=== PATIENT | male | born 1945 | race Caucasian/White ===

== ENCOUNTER 2016-12-29 13:54 | Emergency (ER) | payer MEDICARE ==
[2016-12-29] MEDS ORDERED: ONDANSETRON HCL INJ/PF 4 MG/2 ML SDV IV ONE (14:29)
[2016-12-29] MEDS ORDERED: KETOROLAC TROMETHAMINE INJ/PF 30 MG/1 ML SDV IV ONE (14:29)
--- NOTE | 2016-12-29 14:30 | ER Document Report ---
ED Medical Screen (RME) - General Stated Complaint: BACK PAIN Mode of Arrival: Ambulatory Information source: Patient Notes: Patient complains of left flank pain that radiates to left side of abdomen that started around 11 AM. Patient has a history of kidney stones and suspects the same today. hx: Kidney stones, diabetes, hypertension I have greeted and performed a rapid initial assessment of this patient. A comprehensive ED assessment and evaluation of the patient, analysis of test results and completion of the medical decision making process will be conducted by additional ED providers. TRAVEL OUTSIDE OF THE [place] IN LAST 30 DAYS: No - Related Data Allergies/Adverse Reactions: Penicillins Allergy (Verified 12/29/16 14:29) Past Medical History - Past Medical History Cardiac Medical History: Reports: Hx Hypercholesterolemia, Hx Hypertension Renal/ Medical History: Reports: Hx Benign Prostatic Hyperplasia Past Surgical History: Reports: Hx Orthopedic Surgery - Immunizations Hx Diphtheria, Pertussis, Tetanus Vaccination: Yes - unknown Physical Exam - Vital signs Vitals: Temp Pulse Resp BP Pulse Ox 98.3 F 83 20 157/90 H 97 12/29/16 14:19 12/29/16 14:19 12/29/16 14:19 12/29/16 14:19 12/29/16 14:19 - Back Back: CVA tenderness - Left Course - Vital Signs Vital signs: Temp Pulse Resp BP Pulse Ox 98.3 F 83 20 157/90 H 97 12/29/16 14:19 12/29/16 14:19 12/29/16 14:19 12/29/16 14:19 12/29/16 14:19
[2016-12-29] MEDS ORDERED: HYDROMORPHONE HCL INJ/PF 2 MG/ML AMPULE IV ONE (15:00)
[2016-12-29 15:10] LABS: ABSOLUTE BASOPHILS # (AUTO) 0.1 10^3/uL (0.0-0.2); ABSOLUTE MONOCYTES (AUTO) 0.7 10^3/uL (0.1-1.4); ABSOLUTE NEUT (AUTO) 7.2 10^3/uL (1.7-8.2); BASOPHILS % (AUTO) 0.8 % (0-2); EOSINOPHILS % (AUTO) 0.5 % (0-6); HEMATOCRIT 40.6 % (37.9-51.0); HEMOGLOBIN 13.5 g/dL (13.5-17.0); HGB HCT DIFFERENCE -0.1; LYMPHOCYTES % (AUTO) 11.5 % (13-45); MEAN CORPUSCULAR HGB CONC 33.2 g/dL (32.0-36.0); MEAN CORPUSCULAR VOLUME 84 fl (80-97); RED BLOOD COUNT 4.83 10^6/uL (4.35-5.55); RED CELL DISTRIBUTION WIDTH 14.1 % (11.5-14.0); SEGMENTED NEUTROPHILS % (AUTO) 79.2 % (42-78); WHITE BLOOD COUNT 9.1 10^3/uL (4.0-10.5)
[2016-12-29 15:30] LABS: ALANINE AMINOTRANSFERASE 39 U/L (21-72); ALBUMIN 4.9 g/dL (3.5-5.0); ALKALINE PHOSPHATASE 84 U/L (38-126); ANION GAP 15 (5-19); ASPARTATE AMINO TRANSFERASE 29 U/L (17-59); BILIRUBIN,TOTAL 0.8 mg/dL (0.2-1.3); BLOOD UREA NITROGEN 27 mg/dL (7-20); CALCIUM 10.1 mg/dL (8.4-10.2); CARBON DIOXIDE 24 mmol/L (22-30); CHLORIDE 102 mmol/L (98-107); CREATININE RESULT 0.92 mg/dL (0.52-1.25); GLUCOSE 136 mg/dL (75-110); LIPASE 66.3 U/L (23-300); POTASSIUM 4.2 mmol/L (3.6-5.0); SODIUM 140.5 mmol/L (137-145); TOTAL PROTEIN 7.4 g/dL (6.3-8.2)
[2016-12-29 15:53] LABS: APPEARANCE,URINE SLIGHTLY-CLOUDY; BILIRUBIN,URINE NEGATIVE (NEGATIVE); GLUCOSE, URINE NEGATIVE (NEGATIVE); KETONES,URINE NEGATIVE (NEGATIVE); LEUKOCYTE ESTERASE,URINE NEGATIVE (NEGATIVE); NITRITE,URINE NEGATIVE (NEGATIVE); PROTEIN,URINE NEGATIVE (NEGATIVE); URINE SPECIFIC GRAVITY 1.016; UROBILINOGEN,URINE NEGATIVE mg/dL (<2.0)
--- NOTE | 2016-12-29 16:04 | ER Document Report ---
ED General - General Chief Complaint: Flank Pain Stated Complaint: BACK PAIN Mode of Arrival: Ambulatory Information source: Patient Notes: 71 yr old male hx of kidney stones presents with complaints of bilateral flank pain since 11am today. pt denies any fevers or chills, denies any dificulty urinating TRAVEL OUTSIDE OF THE [place] IN LAST 30 DAYS: No - HPI Onset: Just prior to arrival Onset/Duration: Sudden Quality of pain: Sharp Severity: Moderate Pain Level: 3 Associated symptoms: None Exacerbated by: Denies Relieved by: Denies Similar symptoms previously: Yes Recently seen / treated by doctor: No - Related Data Allergies/Adverse Reactions: Penicillins Allergy (Verified 12/29/16 14:29) Past Medical History - General Information source: Patient - Social History Smoking Status: Former Smoker Cigarette use (# per day): No Chew tobacco use (# tins/day): No Smoking Education Provided: No Frequency of alcohol use: None Drug Abuse: None Family History: Reviewed & Not Pertinent, Other - No history of CAD. Mother at 83 of unknown causes and father at 93. Patient has suicidal ideation: No Patient has homicidal ideation: No - Past Medical History Cardiac Medical History: Reports: Hx Hypercholesterolemia, Hx Hypertension Renal/ Medical History: Reports: Hx Benign Prostatic Hyperplasia. Denies: Hx Peritoneal Dialysis Past Surgical History: Reports: Hx Orthopedic Surgery - Immunizations Hx Diphtheria, Pertussis, Tetanus Vaccination: Yes - unknown Review of Systems - Review of Systems Notes: REVIEW OF SYSTEMS: CONSTITUTIONAL : Denies fever, chills, or sweats. Denies recent illness. EENT: Denies eye, ear, throat, or mouth pain or symptoms. Denies nasal or sinus congestion or discharge. Denies throat, tongue, or mouth swelling or difficulty swallowing. CARDIOVASCULAR: Denies chest pain. Denies palpitations or racing or irregular heart beat. Denies ankle edema. RESPIRATORY: Denies cough, cold, or chest congestion. Denies shortness of breath, difficulty breathing, or wheezing. GASTROINTESTINAL: Admits to flank pain GENITOURINARY: Denies difficulty urinating, painful urination, burning, frequency, blood in urine, or discharge. MUSCULOSKELETAL: Denies back or neck pain or stiffness. Denies joint pain or swelling. SKIN: Denies rash, lesions or sores. HEMATOLOGIC : Denies easy bruising or bleeding. LYMPHATIC: Denies swollen, enlarged glands. NEUROLOGICAL: Denies confusion or altered mental status. Denies passing out or loss of consciousness. Denies dizziness or lightheadedness. Denies headache. Denies weakness or paralysis or loss of use of either side. Denies problems with gait or speech. Denies sensory loss, numbness, or tingling. Denies seizures. PSYCHIATRIC: Denies anxiety or stress. Denies depression, suicidal ideation, or homicidal ideation. ALL OTHER SYSTEMS REVIEWED AND NEGATIVE. Dictation was performed using [employer] voice recognition software PHYSICAL EXAMINATION: GENERAL: Well-appearing, well-nourished and in no acute distress. HEAD: Atraumatic, normocephalic. EYES: Pupils equal round and reactive to light, extraocular movements intact, sclera anicteric, conjunctiva are normal. ENT: Nares patent, oropharynx clear without exudates. Moist mucous membranes. NECK: Normal range of motion, supple without lymphadenopathy LUNGS: Breath sounds clear to auscultation bilaterally and equal. No wheezes rales or rhonchi. HEART: Regular rate and rhythm without murmurs ABDOMEN: Soft, nontender, nondistended abdomen. No guarding, no rebound. No masses appreciated. Bilateral CVA tenderness Musculoskeletal: Normal range of motion, no pitting or edema. No cyanosis. NEUROLOGICAL: Cranial nerves grossly intact. Normal speech, normal gait. Normal sensory, motor exams PSYCH: Normal mood, normal affect. SKIN: Warm, Dry, normal turgor, no rashes or lesions noted. Physical Exam - Vital signs Vitals: Temp Pulse Resp BP Pulse Ox 98.3 F 83 20 157/90 H 97 12/29/16 14:19 12/29/16 14:19 12/29/16 14:19 12/29/16 14:19 12/29/16 14:19 Course - Re-evaluation Re-evalutation: 12/29/16 16:03 Patient has probable kidney stone, lab work imaging pending patient given pain control on arrival 12/29/16 16:21 Pt noted ot have 5x 11 mmstone on the left , will give urology follow up pt otherwise notes compelte releif of symptoms, has no signs of renal dysfunction on labs After performing a Medical Screening Examination, I estimate there is LOW risk for ACUTE APPENDICITIS, BOWEL OBSTRUCTION, ACUTE CHOLECYSTITIS, PERFORATED DIVERTICULITIS, INCARCERATED HERNIA, PANCREATITIS, or PERFORATED ULCER, thus I consider the discharge disposition reasonable. Also, there is no evidence or peritonitis, sepsis, or toxicity. The patient and I have discussed the diagnosis and risks, and we agree with discharging home with close follow-up with the understanding that symptoms and presentations can change. We also discussed returning to the Emergency Department immediately if new or worsening symptoms occur. We have discussed the symptoms which are most concerning (e.g., bloody stool, fever, changing or worsening pain, intractable vomiting - standard verbal up date) that necessitate immediate return. - Vital Signs Vital signs: Temp Pulse Resp BP Pulse Ox 98.3 F 83 20 157/90 H 97 12/29/16 14:19 12/29/16 14:19 12/29/16 14:19 12/29/16 14:19 12/29/16 14:19 - Laboratory Result Diagrams: 12/29/16 14:44 12/29/16 14:44 Laboratory results interpreted by me: 12/29/16 12/29/16 12/29/16 14:44 14:44 14:44 RDW 14.1 H Seg Neutrophils % 79.2 H Lymphocytes % 11.5 L BUN 27 H Glucose 136 H Urine Ascorbic Acid 40 H - Diagnostic Test Radiology reviewed: Image reviewed, Reports reviewed Discharge - Discharge Clinical Impression: Kidney stone on left side, Flank pain Condition: Stable Disposition: HOME, SELF-CARE Instructions: Abdominal Pain ([facility]) Additional Instructions: Follow up with Pritesh Aguilar MD in 1-2 days Urologist Address: [address] [place] [address] Prescriptions: Oxycodone HCl/Acetaminophen [Percocet 5-325 mg Tablet] 1 - 2 tab PO Q4H PRN #30 tablet PRN Reason: Promethazine HCl [Phenergan 25 mg Tablet] 1 - 2 tab PO Q6H PRN #15 tablet PRN Reason: Tamsulosin HCl [Flomax 0.4 mg Cap.sr] 0.4 mg PO DAILY #14 cap.sr.24h Forms: Return to Work
[2016-12-29 17:09] VITALS: BP 114/68
== END 2016-12-29 17:08 | disposition home or self-care (01) ==
LOC: ER 13:54
DX: N20.0 Calculus of kidney (principal); R10.9 Unspecified abdominal pain; E78.00 Pure hypercholesterolemia, unspecified; I10 Essential (primary) hypertension; Z87.891 Personal history of nicotine dependence
CPT/HCPCS: 99284; 96374; 96375; 36415; 83690; 85025; 80053; 81001; 76380; J1885; J1170; J2405

== ENCOUNTER 2017-01-20 20:21 | Emergency (ER) | payer SELFPAY ==
--- NOTE | 2017-01-20 21:08 | ER Document Report ---
ED Medical Screen (RME) - General Chief Complaint: Head Injury Stated Complaint: FALL,HEAD SCRAPE Mode of Arrival: Ambulatory Information source: Patient Notes: 71 y/o M presents to ED c/o right sided neck pain, abrasion to forehead and bilateral knees s/p mechanical fall. Reports tripped and fell while at [employer] parking lot. Denies loc, paresthesias, chest pain, or sob. I have greeted and performed a rapid initial assessment of this patient. A comprehensive ED assessment and evaluation of the patient, analysis of test results and completion of the medical decision making process will be conducted by additional ED providers. TRAVEL OUTSIDE OF THE [place] IN LAST 30 DAYS: No - Related Data Allergies/Adverse Reactions: Penicillins Allergy (Verified 01/20/17 20:59) Past Medical History - Social History Chew tobacco use (# tins/day): No Frequency of alcohol use: None Drug Abuse: None - Past Medical History Cardiac Medical History: Reports: Hx Hypercholesterolemia, Hx Hypertension Renal/ Medical History: Reports: Hx Benign Prostatic Hyperplasia. Denies: Hx Peritoneal Dialysis Past Surgical History: Reports: Hx Orthopedic Surgery - Immunizations Hx Diphtheria, Pertussis, Tetanus Vaccination: Yes - unknown Physical Exam - Vital signs Vitals: Temp Pulse Resp BP Pulse Ox 97.9 F 80 18 154/84 H 97 01/20/17 20:52 01/20/17 20:52 01/20/17 20:52 01/20/17 20:52 01/20/17 20:52 - General General appearance: Appears well, Alert In distress: None - Respiratory Respiratory status: No respiratory distress - Neurological Neuro grossly intact: Yes Cognition: Normal Orientation: AAOx4 [place] Coma Scale Eye Opening: Spontaneous [place] Coma Scale Verbal: Oriented [place] Coma Scale Motor: Obeys Commands [place] Coma Scale Total: 15 Speech: Normal Motor strength normal: LUE, RUE, LLE, RLE Sensory: Normal Course - Vital Signs Vital signs: Temp Pulse Resp BP Pulse Ox 97.9 F 80 18 154/84 H 97 01/20/17 20:55 01/20/17 20:55 01/20/17 20:55 01/20/17 20:55 01/20/17 20:55
--- NOTE | 2017-01-20 23:30 | ER Document Report ---
ED Head/Face/Scalp Injury - General Chief Complaint: Head Injury Stated Complaint: FALL,HEAD SCRAPE Time seen by provider: 23:28 Mode of Arrival: Ambulatory Information source: Patient TRAVEL OUTSIDE OF THE [place] IN LAST 30 DAYS: No - HPI Patient complains to provider of: Injury, Pain Injury to: Forehead Location of problem: Forehead, Head, Neck, Other - Bilateral knees Occurred: Just prior to arrival Where: Public place Timing: Still present Context: Fell Loss consciousness: No loss of consciousness Remembers: Injury, Coming to hospital Notes: Patient is a 71-year-old male who presents to the emergency room status post trip and fall while walking into a local pharmacy, causing an injury to his forehead, his neck and bilateral knees, as well as left hand, states he tripped over a rubber bumper that was on the ground just outside the door of the pharmacy, causing him to fall hitting his right head on the brick wall of the pharmacy, he used his left hand to reach out and try to stop his fall, causing a small contusion to the pulmonary his hand, and also has abrasions to bilateral knees, he is complaining of some pain in the right neck as well, denies any loss of consciousness, no blurred vision, no headache, no nausea, or vomiting - Related Data Allergies/Adverse Reactions: Penicillins Allergy (Verified 01/20/17 20:59) Past Medical History - General Information source: Patient - Social History Smoking Status: Never Smoker Chew tobacco use (# tins/day): No Frequency of alcohol use: None Drug Abuse: None Family History: Reviewed & Not Pertinent, Other - No history of CAD. Mother at 83 of unknown causes and father at 93. Patient has suicidal ideation: No Patient has homicidal ideation: No - Past Medical History Cardiac Medical History: Reports: Hx Hypercholesterolemia, Hx Hypertension Renal/ Medical History: Reports: Hx Benign Prostatic Hyperplasia. Denies: Hx Peritoneal Dialysis Past Surgical History: Reports: Hx Orthopedic Surgery - Immunizations Hx Diphtheria, Pertussis, Tetanus Vaccination: Yes - unknown Review of Systems - Review of Systems Constitutional: No symptoms reported EENT: No symptoms reported Cardiovascular: No symptoms reported Respiratory: No symptoms reported Gastrointestinal: No symptoms reported Genitourinary: No symptoms reported Male Genitourinary: No symptoms reported Musculoskeletal: See HPI Skin: See HPI Hematologic/Lymphatic: No symptoms reported Neurological/Psychological: No symptoms reported -: Yes All other systems reviewed and negative Physical Exam - Vital signs Vitals: Temp Pulse Resp BP Pulse Ox 97.9 F 80 18 154/84 H 97 01/20/17 20:52 01/20/17 20:52 01/20/17 20:52 01/20/17 20:52 01/20/17 20:52 Interpretation: Normal - General General appearance: Appears well, Alert - HEENT Head: Normocephalic, Abrasions - Patient with 6 x 8 cm abrasion to the right forehead Eyes: Normal Conjunctiva: Normal Extraocular movements intact: Yes Eyelashes: Normal Pupils: PERRL Ears: Normal External canal: Normal Sinus: Normal Nasal: Normal Mouth/Lips: Normal Mucous membranes: Normal Pharynx: Normal Neck: Other - Right cervical paraspinal muscle tenderness, mild pain with range of motion testing - Respiratory Respiratory status: No respiratory distress Chest status: Nontender Breath sounds: Normal Chest palpation: Normal - Cardiovascular Rhythm: Regular Heart sounds: Normal auscultation Murmur: No - Abdominal Inspection: Normal Distension: No distension Bowel sounds: Normal Tenderness: Nontender Organomegaly: No organomegaly - Back Back: Normal, Nontender - Extremities General upper extremity: Normal ROM, Normal temperature General lower extremity: Normal ROM, Normal temperature, Normal weight bearing. No: Sherman's sign Hand: Tender - Mild tenderness and ecchymosis to the thenar eminence of the left hand, distal sensation and motor is intact Knee: Abrasion - Small abrasions to bilateral knees, mild tenderness to palpate over abrasions, full range of motion otherwise, distal sensation and motor is intact - Neurological Neuro grossly intact: Yes Cognition: Normal Orientation: AAOx4 [place] Coma Scale Eye Opening: Spontaneous [place] Coma Scale Verbal: Oriented [place] Coma Scale Motor: Obeys Commands [place] Coma Scale Total: 15 Speech: Normal Motor strength normal: LUE, RUE, LLE, RLE Sensory: Normal - Psychological Associated symptoms: Normal affect, Normal mood - Skin Skin Temperature: Warm Skin Moisture: Dry Skin Color: Normal Course - Re-evaluation Re-evalutation: 01/21/17 01:54 Imaging findings were discussed with patient at bedside, he was offered pain medication which he declined stating he has pain medication, tetanus shot was administered here in May 2014, he was advised to follow-up with his primary care provider or return if symptoms worsen, patient acknowledges understanding and agreement with this plan - Vital Signs Vital signs: Temp Pulse Resp BP Pulse Ox 98.6 F 77 18 130/76 H 96 01/20/17 23:45 01/20/17 23:45 01/20/17 23:45 01/20/17 23:45 01/20/17 23:45 - Diagnostic Test Radiology reviewed: Image reviewed, Reports reviewed Discharge - Discharge Clinical Impression: Abrasion of knee, bilateral Head injury Qualifiers: Encounter type: initial encounter Qualified Code(s): S09.90XA - Unspecified injury of head, initial encounter Forehead abrasion Qualifiers: Encounter type: initial encounter Qualified Code(s): S00.81XA - Abrasion of other part of head, initial encounter Knee contusion Qualifiers: Encounter type: initial encounter Laterality: unspecified laterality Qualified Code(s): S80.00XA - Contusion of unspecified knee, initial encounter Contusion of left hand Qualifiers: Encounter type: initial encounter Qualified Code(s): S60.222A - Contusion of left hand, initial encounter Cervical strain, acute Qualifiers: Encounter type: initial encounter Qualified Code(s): S16.1XXA - Strain of muscle, fascia and tendon at neck level, initial encounter Condition: Stable Disposition: HOME, SELF-CARE Instructions: Head Injury Precautions ([facility]), Neck Injury (Cervical Strain) ([facility] ), Contusion ([facility]), Abrasions ([facility]), Abrasions of the Face ([facility]) Additional Instructions: Follow up with your primary care provider in one to 2 days. Return to the emergency room immediately if symptoms worsen or any additional concerns.
[2017-01-20 23:55] VITALS: BP 130/76
== END 2017-01-20 23:55 | disposition home or self-care (01) ==
LOC: ER 20:21
DX: S09.90XA Unspecified injury of head, initial encounter (principal); S00.81XA Abrasion of other part of head, initial encounter; S80.00XA Contusion of unspecified knee, initial encounter; S60.222A Contusion of left hand, initial encounter; S16.1XXA Strain of muscle, fascia and tendon at neck level, initial encounter; S80.212A Abrasion, left knee, initial encounter; S80.211A Abrasion, right knee, initial encounter; W01.0XXA Fall on same level from slipping, tripping and stumbling without subsequent striking against object, initial encounter; Y92.512 Supermarket, store or market as the place of occurrence of the external cause; Z88.0 Allergy status to penicillin; E78.00 Pure hypercholesterolemia, unspecified; I10 Essential (primary) hypertension
CPT/HCPCS: 72040; 99284

== ENCOUNTER 2017-04-04 06:34 | Emergency (ER) | payer BC, MEDICARE ==
[2017-04-04] MEDS ORDERED: ASPIRIN 81 MG TABLET, CHEWABLE PO ONE (06:39)
[2017-04-04] MEDS ORDERED: NITROGLYCERIN 2% OINTMENT 1 GM PACKET TP ONE (07:04)
--- NOTE | 2017-04-04 07:27 | ER Document Report ---
ED General - General Chief Complaint: Chest Pain Stated Complaint: CHEST PAIN Time Seen by Provider: 04/04/17 06:56 TRAVEL OUTSIDE OF THE [place] IN LAST 30 DAYS: No - HPI Patient complains to provider of: chest pain Notes: Patient is today for central chest pain radiating to left shoulder patient states day prior to arrival was intermittent however upon awaking this morning pain became worse and more pronounced constant therefore came into the ER for further evaluation. Patient states a history of hypertension diabetes2. Patient denies any recent travel or trauma. Patient denies any fevers chills nausea vomiting diarrhea shortness of breath. Patient states her midchest pains ongoing for "quite some time" states that his doctor has evaluated in the past he's had a stress test many years ago that was negative however is no recent cardiac workup. Upon entrance into the examination room patient is in no obvious distress speaking in clear sentences stating that his pain is 5 out of 5. - Related Data Allergies/Adverse Reactions: Penicillins Allergy (Verified 01/20/17 20:59) Past Medical History - Social History Smoking Status: Unknown if Ever Smoked Family History: Reviewed & Not Pertinent, Other - No history of CAD. Mother at 83 of unknown causes and father at 93. Patient has suicidal ideation: No Patient has homicidal ideation: No - Past Medical History Cardiac Medical History: Reports: Hx Hypercholesterolemia, Hx Hypertension Renal/ Medical History: Reports: Hx Benign Prostatic Hyperplasia. Denies: Hx Peritoneal Dialysis Past Surgical History: Reports: Hx Orthopedic Surgery - Immunizations Hx Diphtheria, Pertussis, Tetanus Vaccination: Yes - unknown Review of Systems - Review of Systems Constitutional: No symptoms reported EENT: No symptoms reported Cardiovascular: Chest pain Respiratory: No symptoms reported Gastrointestinal: No symptoms reported Genitourinary: No symptoms reported Male Genitourinary: No symptoms reported Musculoskeletal: No symptoms reported Skin: No symptoms reported Hematologic/Lymphatic: No symptoms reported Neurological/Psychological: No symptoms reported -: Yes All other systems reviewed and negative Physical Exam - Vital signs Vitals: Temp Pulse Resp BP Pulse Ox 97.8 F 94 20 162/94 H 99 04/04/17 06:36 04/04/17 06:36 04/04/17 06:36 04/04/17 06:36 04/04/17 06:36 Interpretation: Normal - General General appearance: Appears well, Alert - HEENT Head: Normocephalic, Atraumatic Eyes: Normal Pupils: PERRL - Respiratory Respiratory status: No respiratory distress Chest status: Nontender Breath sounds: Normal Chest palpation: Normal - Cardiovascular Rhythm: Regular Heart sounds: Normal auscultation Murmur: No - Abdominal Inspection: Normal Distension: No distension Bowel sounds: Normal Tenderness: Nontender Organomegaly: No organomegaly - Back Back: Normal, Nontender - Extremities General upper extremity: Normal inspection, Nontender, Normal color, Normal ROM , Normal temperature General lower extremity: Normal inspection, Nontender, Normal color, Normal ROM , Normal temperature, Normal weight bearing. No: Sherman's sign - Neurological Neuro grossly intact: Yes Cognition: Normal Orientation: AAOx4 [place] Coma Scale Eye Opening: Spontaneous [place] Coma Scale Verbal: Oriented [place] Coma Scale Motor: Obeys Commands [place] Coma Scale Total: 15 Speech: Normal Motor strength normal: LUE, RUE, LLE, RLE Sensory: Normal - Psychological Associated symptoms: Normal affect, Normal mood - Skin Skin Temperature: Warm Skin Moisture: Dry Skin Color: Normal Course - Re-evaluation Re-evalutation: 04/04/17 07:26 Patient with chest pain ongoing for approximately 24 hours and has been intermittent worse prior to arrival Patient coming in EKGs does show elevation in V2 chronic elevation in V1 with depressions 1 and 2 look to be chronic. Did do believe these elevations may be early repolarization. I did discuss with job printer apprentice distillation operator helper however at this time cannot look at the EKG as that the Internet is now on EKGs transfer system. Patient will be given nitroglycerin will repeat EKG here aspirin given. At this time with I do not believe that the patient is having STEMI with one lead showing elevation and chronic depressions. Patient otherwise looks stable 04/04/17 07:27 Still currently waiting on chest x-ray 04/04/17 08:18 Notified that the EKG is now available. We did repeat EKG did show improvement of the changes. Patient states chest pain center chest has improved however now is having specific left shoulder pain. Patient will be given a dose of morphine. Troponin did return slightly elevated but still negative. Will consult cardiology 04/04/17 10:25 Discussed with cardiology at this time patient's troponin is negative. EKG changes in V2 did improve with nitroglycerin. Patient's pain in his chest is now resolved with nitroglycerin however patient still complains of some tightness in his left shoulder. Morphine was given with did relieve the pain however pain did return. Patient currently rates his pain to a 5. On arrival 5 out of 5. Cardiology on-call Bridget recommended the patient go to tertiary care facility for catheterization. Did discuss with Dr. Monroe who accepted the patient have to Dr. Quinn for ongoing chest pain EKG changes. 04/04/17 10:29 Was notified this time patient's repeat EKG was performed and troponin performed. Troponins elevated now is positive at 1.6. Patient was reevaluated states that most of his pain has been much subsided 04/04/17 11:17 Reevaluated patient again informed patient that he will be transferred to [facility]. Patient states again his pain in the arm is two/ 5 there is no pain in the chest. Patient will be given scheduled morphine. Repeat EKG shows no signs of STEMI - Vital Signs Vital signs: Temp Pulse Resp BP Pulse Ox 97.8 F 94 18 133/75 H 95 04/04/17 06:36 04/04/17 06:36 04/04/17 12:01 04/04/17 12:01 04/04/17 12:01 - Laboratory Result Diagrams: 04/04/17 07:15 04/04/17 07:15 Laboratory results interpreted by me: 04/04/17 04/04/17 04/04/17 07:15 07:15 10:37 RDW 14.3 H Potassium 3.3 L BUN 22 H Glucose 155 H Urine Ketones TRACE H Urine Ascorbic Acid 20 H Critical Care Note - Critical Care Note Total time excluding time spent on procedures (mins): 35 Comments: Multiple evaluation patient with NSTEMI Discharge - Discharge Clinical Impression: NSTEMI (non-ST elevated myocardial infarction)
[2017-04-04 07:37] LABS: ABSOLUTE BASOPHILS # (AUTO) 0.1 10^3/uL (0.0-0.2); ABSOLUTE EOSINOPHILS # (AUTO) 0.1 10^3/uL (0.0-0.6); ABSOLUTE LYMPHOCYTES (AUTO) 1.6 10^3/uL (0.5-4.7); ABSOLUTE MONOCYTES (AUTO) 0.6 10^3/uL (0.1-1.4); ABSOLUTE NEUT (AUTO) 4.6 10^3/uL (1.7-8.2); BASOPHILS % (AUTO) 0.8 % (0-2); EOSINOPHILS % (AUTO) 1.8 % (0-6); HEMATOCRIT 39.8 % (37.9-51.0); HEMOGLOBIN 13.5 g/dL (13.5-17.0); HGB HCT DIFFERENCE 0.7; LYMPHOCYTES % (AUTO) 23.3 % (13-45); MEAN CORPUSCULAR HEMOGLOBIN 28.4 pg (27.0-33.4); MEAN CORPUSCULAR HGB CONC 33.8 g/dL (32.0-36.0); MEAN CORPUSCULAR VOLUME 84 fl (80-97); MONOCYTES % (AUTO) 8.4 % (3-13); RED BLOOD COUNT 4.75 10^6/uL (4.35-5.55); RED CELL DISTRIBUTION WIDTH 14.3 % (11.5-14.0); SEGMENTED NEUTROPHILS % (AUTO) 65.7 % (42-78)
[2017-04-04 07:51] LABS: ALANINE AMINOTRANSFERASE 45 U/L (21-72); ALBUMIN 4.3 g/dL (3.5-5.0); ALKALINE PHOSPHATASE 78 U/L (38-126); ANION GAP 14 (5-19); ASPARTATE AMINO TRANSFERASE 26 U/L (17-59); BILIRUBIN,DIRECT 0.4 mg/dL (0.0-0.4); BILIRUBIN,TOTAL 1.2 mg/dL (0.2-1.3); BLOOD UREA NITROGEN 22 mg/dL (7-20); CALCIUM 9.8 mg/dL (8.4-10.2); CARBON DIOXIDE 24 mmol/L (22-30); CHLORIDE 100 mmol/L (98-107); CREATINE KINASE 89 U/L (55-170); CREATININE RESULT 0.91 mg/dL (0.52-1.25); GLUCOSE 155 mg/dL (75-110); MAGNESIUM 2.1 mg/dL (1.6-2.3); POTASSIUM 3.3 mmol/L (3.6-5.0); SODIUM 137.6 mmol/L (137-145); TOTAL PROTEIN 7.2 g/dL (6.3-8.2)
[2017-04-04 08:02] LABS: CREATINE KINASE MB 1.67 ng/mL (<4.55)
[2017-04-04 08:07] LABS: TROPONIN I 0.109 ng/mL
[2017-04-04] MEDS ORDERED: NORMAL SALINE 1000 ML 1,000 ML IV ONE ×2 (08:12→14:05)
[2017-04-04] MEDS ORDERED: NORMAL SALINE 500 ML IV ONE (08:12)
[2017-04-04] MEDS ORDERED: MORPHINE SULFATE 10 MG/ML INJ IV ONE ×2 (08:13→09:13)
[2017-04-04] MEDS ORDERED: POTASSIUM CHLORIDE 10 MEQ TABLET.SA PO ONE (08:36)
[2017-04-04 09:54] LABS: PARTIAL THROMBOPLASTIN TIME 30.2 SEC (23.5-35.8); PROTHROMBIN TIME 13.5 SEC (11.4-15.4)
[2017-04-04] MEDS ORDERED: ENOXAPARIN SODIUM INJ 150 MG/1 ML DISP.SYRIN SUBCUT SCH (10:00)
[2017-04-04] MEDS: MORPHINE SULFATE 10 MG/ML INJ IV PRN ×2 (11:04→13:51)
[2017-04-04 11:09] LABS: APPEARANCE,URINE CLEAR; BILIRUBIN,URINE NEGATIVE (NEGATIVE); GLUCOSE, URINE NEGATIVE (NEGATIVE); KETONES,URINE TRACE mg/dL (NEGATIVE); LEUKOCYTE ESTERASE,URINE NEGATIVE (NEGATIVE); NITRITE,URINE NEGATIVE (NEGATIVE); PROTEIN,URINE NEGATIVE (NEGATIVE); URINE SPECIFIC GRAVITY 1.011; UROBILINOGEN,URINE NEGATIVE mg/dL (<2.0)
--- NOTE | 2017-04-04 11:31 | EKG REPORT ---
SEVERITY:- BORDERLINE ECG - SINUS RHYTHM BORDERLINE T ABNORMALITIES, ANTERIOR LEADS : Confirmed by: Donita Eisenberg 04-Apr-2017 11:30:48
--- NOTE | 2017-04-04 11:31 | EKG REPORT ---
SEVERITY:- ABNORMAL ECG - SINUS RHYTHM FIRST DEGREE AV BLOCK : Confirmed by: Donita Eisenberg 04-Apr-2017 11:30:53
--- NOTE | 2017-04-04 11:31 | EKG REPORT ---
SEVERITY:- ABNORMAL ECG - SINUS RHYTHM NONSPECIFIC REPOL ABNORMALITY, DIFFUSE LEADS : Confirmed by: Donita Eisenberg 04-Apr-2017 11:31:06
[2017-04-04 15:43] VITALS: BP 128/84
--- NOTE | 2017-04-05 12:56 | EKG REPORT ---
SEVERITY:- NORMAL ECG - SINUS RHYTHM : Confirmed by: Donita Eisenberg 05-Apr-2017 12:55:47
== END 2017-04-04 15:20 | disposition short-term general hospital (02) ==
LOC: ER 06:34
DX: I21.4 Non-ST elevation (NSTEMI) myocardial infarction (principal); I10 Essential (primary) hypertension; E11.9 Type 2 diabetes mellitus without complications; R07.9 Chest pain, unspecified; M25.512 Pain in left shoulder; Z88.0 Allergy status to penicillin
CPT/HCPCS: 93005; 96376; 99291; 96372; 96361; 96374; 36415; 82553; 82550; 83690; 83735; 85025; 85610; 85730; 80053; 81001; 84484; 71010; 93010; J3490; J2270; J7030; J7040

== ENCOUNTER 2017-12-07 00:40 | Observation (INO) | payer BC, MEDICARE ==
--- NOTE | 2017-12-07 01:14 | ER Document Report ---
ED General - General Chief Complaint: Chest Pain Stated Complaint: CHEST PAIN Time Seen by Provider: 12/07/17 01:00 Notes: This is a 22-year-old male with history of diabetes and hypertension as well as a history of an STEMI presenting with chest pain for the last 3 days. He does normally not have chest pain with the chest pain has been "soreness" described as central chest involving the left shoulder area. He is not sure if it feels like when he had a heart attack or not. He does not states exertional or positional but has been getting it more frequently in the last 3 days. He actually took some nitroglycerin which he says made it slightly better today. He is currently pain-free. He has a history of leg swelling chronically and has been a little worse lately. He sleeps sitting up with us because it feels better for his legs. He had a catheterization done in March by . TRAVEL OUTSIDE OF THE [place] IN LAST 30 DAYS: No - Related Data Allergies/Adverse Reactions: Penicillins Allergy (Verified 01/20/17 20:59) Past Medical History - Social History Smoking Status: Never Smoker Family History: Reviewed & Not Pertinent, Other - No history of CAD. Mother at 83 of unknown causes and father at 93. - Past Medical History Cardiac Medical History: Reports: Hx Hypercholesterolemia, Hx Hypertension Endocrine Medical History: Reports: Hx Diabetes Mellitus Type 2 Renal/ Medical History: Reports: Hx Benign Prostatic Hyperplasia. Denies: Hx Peritoneal Dialysis Past Surgical History: Reports: Hx Orthopedic Surgery - Immunizations Hx Diphtheria, Pertussis, Tetanus Vaccination: Yes - unknown Review of Systems - Review of Systems Notes: REVIEW OF SYSTEMS GEN: Denies fever, chills, weight loss ENT: Denies sore throat, nasal discharge, ear pain EYES: Denies blurry vision, eye pain, discharge CV: Attests to chest pain, denies palpitations, edema RESP: Denies cough, shortness of breath, wheezing GI: Denies abdominal pain, nausea, vomiting, diarrhea MSK: Denies joint pain/swelling, positive edema SKIN: Leg swelling LYMPH: Denies swollen glands/lymph nodes NEURO: Denies headache, focal weakness or numbness, dizziness PSYCH: Denies depression, suicidal or homicidal ideation PHYSICAL EXAMINATION General: No acute distress, well-nourished Head: Atraumatic, normocephalic ENT: Mouth normal, oropharynx moist, no exudates or tonsillar enlargement Eyes: Conjunctiva normal, pupils equal, lids normal Neck: No JVD, supple, no guarding CVS: Normal rate, regular rhythm, no murmurs Resp: No resp distress, equal and normal breath sounds bilaterally GI: Nondistended, soft, no tenderness to palpation, no rebound or guarding Ext: No deformities, chronic 1+ bilateral leg edema, normal range of motion in upper and lower ext Back: No CVA or midline TTP Skin: No rash, warm Lymphatic: No lymphadeopathy noted Neuro: Awake, alert. Face symmetric. GCS 15. Physical Exam - Vital signs Vitals: Temp Pulse Resp BP Pulse Ox 97.6 F 76 18 128/67 H 99 12/07/17 00:51 12/07/17 00:51 12/07/17 00:51 12/07/17 00:51 12/07/17 00:51 Course - Re-evaluation Re-evalutation: 12/07/17 01:20 72-year-old male presents with recent onset chest pain. He normally does not have chest pain. It is not exertional but it is partially relieved with nitroglycerin. He has a history of coronary disease. It is not pleuritic ripping or tearing so I think pulmonary embolus or aortic dissection is not as likely. His ECG today has some nonspecific changes but no acute ST or T-wave changes and he is currently pain-free. I will give him aspirin, send a troponin , and plan to repeat his ECG. Given his risk factors and his heart score of 5 he will need to be transferred any since he has been to [facility] I will send him there. 12/07/17 02:16 Troponin negative. EKG unchanged. Pain-free. Discussed with hospitalist and asked for admission. - Vital Signs Vital signs: Temp Pulse Resp BP Pulse Ox 97.6 F 76 18 128/67 H 99 12/07/17 00:51 12/07/17 00:51 12/07/17 00:51 12/07/17 00:51 12/07/17 00:51 - Laboratory Result Diagrams: 12/07/17 01:30 12/07/17 01:30 Laboratory results interpreted by me: 12/07/17 01:30 RBC 4.23 L Hgb 12.5 L Hct 36.6 L RDW 14.7 H Plt Count 116 L Seg Neutrophils % 81.7 H Lymphocytes % 8.3 L Absolute Neutrophils 8.4 H - Diagnostic Test Radiology reviewed: Image reviewed, Reports reviewed - EKG Interpretation by Me EKG shows normal: Sinus rhythm Rate: Normal Rhythm: NSR When compared to previous EKG there are: Changes noted - Slightly increased amplitude of T waves throughout Discharge - Discharge Clinical Impression: Chest pain, unspecified Qualifiers: Chest pain type: unspecified Qualified Code(s): R07.9 - Chest pain, unspecified Condition: Fair Disposition: ADMITTED OBSERVATION Admitting Provider: Hospitalist Unit Admitted: Telemetry
[2017-12-07 01:40] LABS: ABSOLUTE BASOPHILS # (AUTO) 0.1 10^3/uL (0.0-0.2); ABSOLUTE EOSINOPHILS # (AUTO) 0.1 10^3/uL (0.0-0.6); ABSOLUTE LYMPHOCYTES (AUTO) 0.9 10^3/uL (0.5-4.7); ABSOLUTE MONOCYTES (AUTO) 0.9 10^3/uL (0.1-1.4); ABSOLUTE NEUT (AUTO) 8.4 10^3/uL (1.7-8.2); BASOPHILS % (AUTO) 0.9 % (0-2); EOSINOPHILS % (AUTO) 0.7 % (0-6); HEMATOCRIT 36.6 % (37.9-51.0); HEMOGLOBIN 12.5 g/dL (13.5-17.0); LYMPHOCYTES % (AUTO) 8.3 % (13-45); MEAN CORPUSCULAR HEMOGLOBIN 29.6 pg (27.0-33.4); MEAN CORPUSCULAR HGB CONC 34.2 g/dL (32.0-36.0); MEAN CORPUSCULAR VOLUME 87 fl (80-97); MONOCYTES % (AUTO) 8.4 % (3-13); PLATELET COUNT 116 10^3/uL (150-450); RED BLOOD COUNT 4.23 10^6/uL (4.35-5.55); RED CELL DISTRIBUTION WIDTH 14.7 % (11.5-14.0); SEGMENTED NEUTROPHILS % (AUTO) 81.7 % (42-78); TOTAL CELLS COUNTED % (AUTO) 100 %; WHITE BLOOD COUNT 10.2 10^3/uL (4.0-10.5)
[2017-12-07] MEDS ORDERED: ASPIRIN 325 MG TABLET PO ONE (01:50)
[2017-12-07 01:54] LABS: ANION GAP 13 (5-19); BLOOD UREA NITROGEN 19 mg/dL (7-20); CARBON DIOXIDE 29 mmol/L (22-30); CHLORIDE 101 mmol/L (98-107); GLUCOSE 106 mg/dL (75-110); POTASSIUM 3.8 mmol/L (3.6-5.0); SODIUM 142.5 mmol/L (137-145)
[2017-12-07] MEDS ORDERED: MORPHINE SULFATE 10 MG/ML INJ IV PRN (02:14)
[2017-12-07] MEDS ORDERED: LANSOPRAZOLE 15 MG TAB.RAP.DR PO ONE (02:14)
[2017-12-07] MEDS ORDERED: NITROGLYCERIN 0.4 MG/TAB 25 TAB/BOTTLE SL PRN (02:14)
[2017-12-07] MEDS ORDERED: METOPROLOL TARTRATE PF/INJ 5 MG/5 ML SDV IV PRN (02:14)
--- NOTE | 2017-12-07 02:14 | RADIOLOGY REPORT (SQ) ---
EXAM DESCRIPTION: CHEST SINGLE VIEW CLINICAL HISTORY: cp COMPARISON: 04/04/2017 FINDINGS: Single frontal view of the chest. The cardiomediastinal silhouette has normal size and contour. No consolidation, pneumothorax, or pleural effusion. No displaced rib fractures identified. Upper abdominal soft tissues are unremarkable. Leads overlie the chest. Low lung volumes. IMPRESSION: 1. No acute pulmonary process identified.
[2017-12-07] MEDS ORDERED: ATORVASTATIN CALCIUM 40 MG TABLET PO ONE (02:45)
[2017-12-07] MEDS ORDERED: FUROSEMIDE INJ/PF 20 MG/2 ML SDV IV ONE (03:06)
[2017-12-07] MEDS ORDERED: POTASSIUM CHLORIDE 10 MEQ TABLET.SA PO ONE (03:06)
--- NOTE | 2017-12-07 03:13 | PDOC H&P ---
History of Present Illness Admission Date/PCP: 12/07/17 02:30 History of Present Illness: GIDEON FREDERICK is a 72 year old male with past medical history of coronary artery disease status post stent in March, diabetes mellitus, hypertension, hyperlipidemia who presents to the emergency department complaint of chest pain. He reports that ever since several days ago having some espresso and amaretto that he began developing some chest pain. He reports this is dull substernal chest pain that he describes as a soreness. He reports that it is worse when he leans forward and is better when he is sitting comfortably. He denies any radiation of his pain. He denies any associated shortness of breath , nausea, vomiting, diaphoresis or metallic taste in his mouth. He denies any associated fevers chills or cough. He does report some sinus congestion. Patient does note that his lower extremities have been more significantly swollen since he has been having this chest discomfort. And he does state that he feels some occasional irregularity to his heartbeat. Patient is referred to the hospitalist service for evaluation of his chest pain. Patient's medications are currently undergoing reconciliation. Current list is automatically generated by [employer] and does not reflect an accurate description of his medications. Due to the urgent/emergent nature of his condition, he is admitted without a full list. Past Medical History Cardiac Medical History: Reports: Myocardial Infarction, Hyperlipidema, Hypertension Endocrine Medical History: Reports: Diabetes Mellitus Type 2 Past Surgical History Past Surgical History: Reports: Cardiac Catheterization, Orthopedic Surgery Social History Smoking Status: Never Smoker Frequency of Alcohol Use: Occasional Hx Recreational Drug Use: No Hx Prescription Drug Abuse: No - Advance Directive Resuscitation Status: Full Code Surrogate healthcare decision maker:: Alex Tomas, nephew Family History Family History: CAD, DM, Other - No history of CAD. Mother at 83 of unknown causes and father at 93. Parental Family History Reviewed: Yes Children Family History Reviewed: Yes Sibling(s) Family History Reviewed.: Yes Medication/Allergy Home Medications: Finasteride [Propecia] 1 mg PO DAILY 04/07/13 Hydrochlorothiazide 25 mg PO DAILY 04/07/13 Hydrocodone/Acetaminophen [Tell 5-325 mg Tablet] 1 tab PO Q6 PRN #10 tablet Tamsulosin HCl [Flomax 0.4 mg Cap.sr] 0.4 mg PO DAILY 06/07/14 Oxycodone HCl/Acetaminophen [Percocet 5-325 mg Tablet] 1 - 2 tab PO Q4H PRN #30 tablet 12/29/16 Promethazine HCl [Phenergan 25 mg Tablet] 1 - 2 tab PO Q6H PRN #15 tablet Tamsulosin HCl [Flomax 0.4 mg Cap.sr] 0.4 mg PO DAILY #14 cap.sr.24h 12/29/16 Allergies/Adverse Reactions: Penicillins Allergy (Verified 01/20/17 20:59) Review of Systems Constitutional: ABSENT: chills, fever(s), headache(s), weight gain, weight loss Eyes: ABSENT: visual disturbances Ears: ABSENT: hearing changes Cardiovascular: PRESENT: chest pain, edema, palpitations. ABSENT: dyspnea on exertion, orthropnea Respiratory: ABSENT: cough, dyspnea, hemoptysis, sputum Gastrointestinal: ABSENT: abdominal pain, constipation, diarrhea, hematemesis, hematochezia, nausea, vomiting Genitourinary: ABSENT: dysuria, hematuria Musculoskeletal: ABSENT: joint swelling Integumentary: ABSENT: rash, wounds Neurological: ABSENT: abnormal gait, abnormal speech, confusion, dizziness, focal weakness, syncope Psychiatric: ABSENT: anxiety, depression, homidical ideation, suicidal ideation Endocrine: ABSENT: cold intolerance, heat intolerance, polydipsia, polyuria Hematologic/Lymphatic: ABSENT: easy bleeding, easy bruising Physical Exam Vital Signs: Temp Pulse Resp BP Pulse Ox 97.6 F 76 18 108/69 97 12/07/17 00:51 12/07/17 00:51 12/07/17 02:06 12/07/17 02:06 12/07/17 02:06 General appearance: PRESENT: no acute distress, obese, well-developed, well- nourished Head exam: PRESENT: atraumatic, normocephalic Eye exam: PRESENT: conjunctiva pink, EOMI, PERRLA. ABSENT: scleral icterus Ear exam: PRESENT: normal external ear exam Mouth exam: PRESENT: moist, tongue midline Neck exam: PRESENT: JVD. ABSENT: lymphadenopathy, thyromegaly, tracheal deviation Respiratory exam: PRESENT: clear to auscultation mitzi, symmetrical, unlabored. ABSENT: rales, rhonchi, tachypnea, wheezes Cardiovascular exam: PRESENT: RRR, +S1, +S2. ABSENT: diastolic murmur, rubs, systolic murmur Pulses: PRESENT: normal dorsalis pedis pul Vascular exam: PRESENT: normal capillary refill GI/Abdominal exam: PRESENT: normal bowel sounds, soft. ABSENT: distended, guarding, mass, organolmegaly, rebound, tenderness Rectal exam: PRESENT: deferred Extremities exam: PRESENT: full ROM, +1 edema. ABSENT: calf tenderness, clubbing Neurological exam: PRESENT: alert, awake, oriented to person, oriented to place , oriented to time, oriented to situation, CN II-XII grossly intact. ABSENT: motor sensory deficit Psychiatric exam: PRESENT: appropriate affect, normal mood. ABSENT: homicidal ideation, suicidal ideation Skin exam: PRESENT: dry, intact, warm. ABSENT: cyanosis, rash Results Laboratory Results: 12/07/17 12/07/17 12/07/17 01:30 01:30 01:30 WBC 10.2 Hgb 12.5 L Plt Count 116 L Potassium 3.8 BUN 19 Creatinine 0.87 Troponin I < 0.012 Impressions: Chest X-Ray 12/07/17 01:21 IMPRESSION: 1. No acute pulmonary process identified. Assessment & Plan - Diagnosis (1) Chest pain Qualifiers: Chest pain type: precordial pain Qualified Code(s): R07.2 - Precordial pain Is this a current diagnosis for this admission?: Yes Plan: Place patient on telemetry observation. Monitor for arrhythmia or ST segment changes. Initiate patient on metoprolol, Lipitor, oxygen, nitroglycerin, morphine, and aspirin. Serial cardiac enzymes every 6 hours. Testing lipid panel in the morning. Will obtain stress test tomorrow due to patient's risk factors and concerning history of chest pain. (2) CAD (coronary artery disease) Qualifiers: Coronary Disease-Associated Artery/Lesion type: [place] artery [place] vs. transplanted heart: [place] heart Associated angina: angina presence unspecified Qualified Code(s): I25.10 - Atherosclerotic heart disease of [place] coronary artery without angina pectoris Is this a current diagnosis for this admission?: Yes Plan: Continue patient on LUIS FERNANDO inhibitor, metoprolol, and aspirin. 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 use: unspecified intermediate insulin use status Qualified Code(s): E11.8 - Type 2 diabetes mellitus with unspecified complications Is this a current diagnosis for this admission?: Yes Plan: Diabetic diet (4) Hypertension Qualifiers: Hypertension type: unspecified Qualified Code(s): I10 - Essential (primary ) hypertension Is this a current diagnosis for this admission?: Yes (5) Obesity Qualifiers: Obesity type: due to excess calories Obesity classification: adult class 1 (BMI 30 - 34.9) Serious obesity comorbidity presence: with serious comorbidity Body mass index: BMI 34.0-34.9 Qualified Code(s): E66.09 - Other obesity due to excess calories; Z68.34 - Body mass index (BMI) 34.0-34.9, adult; Z68.34 - Body mass index (BMI) 34.0-34.9, adult Is this a current diagnosis for this admission?: Yes Plan: Patient is advised to engage actively in weight loss and increase activity as tolerated under the supervision of his primary care physician. 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
[2017-12-07] MEDS ORDERED: (PENDING PHARMACY ID) (Losartan Potassium [Losartan Potassium] 100 MG) PO SCH (08:00)
--- NOTE | 2017-12-07 08:34 | EKG REPORT ---
SEVERITY:- ABNORMAL ECG - SINUS RHYTHM VENTRICULAR PREMATURE COMPLEX : Confirmed by: Luis Lopez MD 07-Dec-2017 08:33:50
[2017-12-07 09:31] LABS: CREATINE KINASE MB 0.62 ng/mL (<4.55)
[2017-12-07 09:34] LABS: TROPONIN I < 0.012 ng/mL
[2017-12-07] MEDS: LOSARTAN POTASSIUM 50 MG TABLET PO SCH (09:51)
[2017-12-07] MEDS: ATORVASTATIN CALCIUM 80 MG TABLET PO SCH (09:51)
[2017-12-07] MEDS: ASPIRIN 81 MG TABLET, CHEWABLE PO SCH (09:51)
[2017-12-07] MEDS: FUROSEMIDE 20 MG TABLET PO SCH (09:52)
[2017-12-07] MEDS: MONTELUKAST SODIUM 10 MG TABLET PO SCH (09:52)
[2017-12-07] MEDS: TICAGRELOR 90 MG TABLET PO SCH ×2 (09:58→17:05)
[2017-12-07] MEDS ORDERED: FINASTERIDE 5 MG TABLET PO SCH (10:00)
[2017-12-07] MEDS ORDERED: ASPIRIN 325 MG TABLET, ENT COATED PO SCH (10:00)
[2017-12-07] MEDS ORDERED: LISINOPRIL 5 MG TABLET PO SCH (10:00)
[2017-12-07] MEDS ORDERED: FINASTERIDE 5 MG PO SCH (10:00)
[2017-12-07 15:37] LABS: CREATINE KINASE MB 0.53 ng/mL (<4.55)
[2017-12-07 15:42] LABS: TROPONIN I < 0.012 ng/mL
[2017-12-07] MEDS: METFORMIN HCL 500 MG TABLET PO SCH (17:04)
--- NOTE | 2017-12-07 17:33 | PDOC CONSULTATION ---
Consultation Consult Date: 12/07/17 Attending physician:: TIFFANIE MONSIVAIS Consult reason:: Chest pain History of Present Illness Admission Date/PCP: 12/07/17 02:30 Patient complains of: Chest pain History of Present Illness: GIDEON FREDERICK is a 72 year old male with past medical history of coronary artery disease status post stent in March, diabetes mellitus, hypertension, hyperlipidemia who presents to the emergency department complaint of chest pain. He reports that ever since several days ago having some espresso and amaretto that he began developing some chest pain. He reports this is dull substernal chest pain that he describes as a soreness. He reports that it is worse when he leans forward and is better when he is sitting comfortably. He denies any radiation of his pain. He denies any associated shortness of breath , nausea, vomiting, diaphoresis or metallic taste in his mouth. He denies any associated fevers chills or cough. He does report some sinus congestion. Patient does note that his lower extremities have been more significantly swollen since he has been having this chest discomfort. And he does state that he feels some occasional irregularity to his heartbeat. Patient is referred to the hospitalist service for evaluation of his chest pain. This history was reviewed and confirmed. Patient does describe history of coronary artery disease with a drug-eluting stent being placed in the left anterior descending artery about 6 months ago. His museum specialist is Dr. Donaldson in [place]. Patient does describe some problems with sleep including both insomnia and some daytime fatigue and sleepiness. Patient's medications are currently undergoing reconciliation. Current list is automatically generated by [employer] and does not reflect an accurate description of his medications. Due to the urgent/emergent nature of his condition, he is admitted without a full list. Past Medical History Cardiac Medical History: Reports: Myocardial Infarction, Hyperlipidema, Hypertension Endocrine Medical History: Reports: Diabetes Mellitus Type 2 Past Surgical History Past Surgical History: Reports: Cardiac Catheterization, Coronary Stent - LAD, drug-eluting approximately months ago, Orthopedic Surgery Social History Information Source: Patient Smoking Status: Never Smoker Frequency of Alcohol Use: Occasional Hx Recreational Drug Use: No Hx Prescription Drug Abuse: No - Advance Directive Resuscitation Status: Full Code Surrogate healthcare decision maker:: Patient's nephew is the surrogate decision-maker Family History Family History: CAD, DM, Other - No history of CAD. Mother at 83 of unknown causes and father at 93. Parental Family History Reviewed: Yes Children Family History Reviewed: Yes Sibling(s) Family History Reviewed.: Yes Medication/Allergy Home Medications: Tamsulosin HCl [Flomax 0.4 mg Cap.sr] 0.4 mg PO QHS 06/07/14 Aspirin [Aspirin EC] 81 mg PO DAILY 12/07/17 Atorvastatin Calcium 80 mg PO DAILY 12/07/17 B,C/Folic/Zinc/Copper Ox/Vit E [Stress B-Complex Tablet] 2 each PO DAILY Calcium Carb/Magnesium Oxid/D3 [Calcium Magnesium + D Tablet] 2 tab PO DAILY Finasteride [Proscar 5 mg Tablet] 5 mg PO DAILY 12/07/17 Furosemide [Lasix 20 mg Tablet] 20 mg PO QAM 12/07/17 Glucosam/Chondr/Collagn/Hyalur [Glucosamine & Chondroitin Cap] 2 each PO DAILY 12/07/17 Losartan Potassium 100 mg PO DAILY 12/07/17 Magnesium Oxide [Mag-Ox 400 mg Tablet] 800 mg PO DAILY 12/07/17 Metformin HCl [Metformin HCl ER] 500 mg PO QHS 12/07/17 Metoprolol Succinate 50 mg PO QHS 12/07/17 Montelukast Sodium 10 mg PO QPMP PRN 12/07/17 Melrose-3 Fatty Acids [Melrose-3] 2,000 mg PO DAILY 12/07/17 Omeprazole 20 mg PO DAILY 12/07/17 Potassium Gluconate [Potassium] 99 mg PO DAILY 12/07/17 Ticagrelor [Brilinta 90 mg Tablet] 90 mg PO Q12 12/07/17 Ubidecarenone/Vit E Acet [Co Q-10 100 mg Softgel] 2 cap PO DAILY 12/07/17 Allergies/Adverse Reactions: Penicillins Allergy (Verified 01/20/17 20:59) Review of Systems Review of Systems: Please see history of present illness and past medical history as wall. Constitutional: No fever or chills reported. Head : No recent chronic headaches, recent head injury. Eyes: No recent eye pain, diplopia, redness, discharge, acute visual changes. Ears: No recent chronic ear pain, acute hearing loss, ear discharge. Oral cavity: No recent ulcerations, bleeding, oral cavity discomfort. Neck: No recent acute neck pain reported. Hematologic: No recent easy bruising or bleeding or hematologic malignancy reported. Lymphatic: No recent lymphatic malignancy, chronic lymphadenopathy reported yet Cardiovascular system review: See history of present illness. Respiratory system review: No recent chronic cough, hemoptysis, blood clots in the lungs reported. Mild Shortness of breath on exertion Gastrointestinal system review: Negative for any recent acute or chronic abdominal pain, hematemesis, melena, recent change in bowel habits. Genitourinary system review: No recent acute or chronic hematuria, flank pain, UTI etc. reported. Skin system review: Negative for any recent abnormal bruising, no rash, no pruritus reported. Neurologic: No prior history of strokes, mini strokes, seizure disorder. Psychologic: No history of major psychosis or major depression reported. Musculoskeletal: Minor aches and pains reported. No acute joint swelling reported. Endocrine: No recent polyuria, polydipsia, recent heat or cold intolerance. Physical Exam Vital Signs: Temp Pulse Resp BP Pulse Ox 97.6 F 76 16 113/68 95 12/07/17 00:51 12/07/17 00:51 12/07/17 12:01 12/07/17 12:01 12/07/17 12:01 Exam: GENERAL: well-nourished and in no acute distress. Alert and oriented x3 HEAD: Atraumatic, normocephalic. EYES: Pupils equal round and reactive to light, extraocular movements intact, sclera anicteric, conjunctiva are normal. ENT: TMs normal, nares patent, oropharynx clear without exudates. Moist mucous membranes. No oral ulcerations or bleeding gums noted NECK: supple without lymphadenopathy. Trachea is central. No cervical or axillary lymphadenopathy noted. Carotids are 2+, JVD WNL LUNGS: Respiration seems nonlabored, no significant accessory muscle action noted. Breath sounds clear to auscultation bilaterally and equal noted. No wheezes rales or rhonchi noted. No significant dullness noted on percussion. CHEST: Palpation of the chest wall shows no significant chest wall tenderness. No other significant abnormalities noted. 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 ABDOMEN: Soft, no significant tenderness appreciated, normoactive bowel sounds. No guarding, no rebound. No rigidity noted . No masses appreciated. EXTREMITIES: Pedal pulses are 1-2+, no calf tenderness noted. No clubbing or cyanosis.trace to 1+ pedal edema noted NEUROLOGICAL: Focused neurological exam showed no significant neurologic deficit. Normal speech, no focal weakness appreciated. PSYCH: Normal mood, normal affect. Judgment and insight within normal limits. SKIN: No significant ecchymosis, rash, ulcerations or signs of pruritus noted. MUSCULOSKELETAL EXAM: No significant joint swelling noted. Results Laboratory Results: 12/07/17 12/07/17 08:24 14:48 CK-MB (CK-2) 0.62 0.53 Troponin I < 0.012 < 0.012 EKG Comments: Sinus rhythm, occasional VPCs, no acute ST-T wave changes noted Impressions: Chest X-Ray 12/07/17 01:21 IMPRESSION: 1. No acute pulmonary process identified. Assessment & Plan - Diagnosis (1) Chest pain Qualifiers: Chest pain type: precordial pain Qualified Code(s): R07.2 - Precordial pain Is this a current diagnosis for this admission?: Yes (2) CAD (coronary artery disease) Qualifiers: Coronary Disease-Associated Artery/Lesion type: [place] artery [place] vs. 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 Qualified Code(s): E11.8 - Type 2 diabetes mellitus with unspecified complications Is this a current diagnosis for this admission?: Yes (4) Hypertension Qualifiers: Hypertension type: unspecified Qualified Code(s): I10 - Essential (primary ) hypertension Is this a current diagnosis for this admission?: Yes (5) Obesity Qualifiers: Obesity type: unspecified obesity type Obesity classification: adult class 1 (BMI 30 - 34.9) Serious obesity comorbidity presence: unspecified whether serious comorbidity present Body mass index: unspecified BMI Qualified Code( s): E66.9 - Obesity, unspecified Is this a current diagnosis for this admission?: Yes (6) Dyslipidemia Is this a current diagnosis for this admission?: Yes - Notes Notes: Chest pain: Patient has known CAD with prior stent placement. Agree that patient will benefit from a nuclear stress test however he is somewhat reluctant to pursue it because of cost involved. Patient informed that it can be performed as an outpatient if he remains stable. He could just let the nurses know if he did not want to pursue it while in the hospital. Recommend to continue cycle cardiac enzymes, EKG in a.m. and with chest pain. Diabetes: Recommend good control of diabetes but avoid any hyper or hypoglycemia. Coronary artery disease: Patient status post stent placement in the LAD. Patient will benefit from dual antiplatelet therapy, statin therapy, beta ap therapy etc. Obesity: Patient has been advised in weight loss. Sleep disorder: Patient may have this diagnosis and may have underlying sleep apnea. Patient has been advised to undergo a sleep study as an outpatient. Dyslipidemia: Continue statin therapy. - Time Time Spent: 30 to 50 Minutes - CODE STATUS was discussed, patient remains full code. Surrogate decision-maker patient's nephew. Multiple medical problems were addressed. More than 50% of the time spent coordinating care, discussing management plans with involved caregivers. Management plans discussed with involved personnels. Medical decision making was of moderate to high complexity , patient's has multiple comorbidities. Medications reviewed and adjusted accordingly: Yes
--- NOTE | 2017-12-07 19:44 | PROGRESS NOTE E ---
Progress Note NAME: GIDEON FREDERICK : 1945 AGE: 72Y DATE: 12/07/2017 ROOM: ED07 SUBJECTIVE: The patient was admitted overnight by Dr. Almanzar. The patient has been seen by Dr. Eisenberg with Cardiology, given the patient's known history of coronary artery disease. The patient has been scheduled for Cardiolite stress test in the a.m. At the time of this dictation, the patient has had 3 sets of negative cardiac enzymes but does admit to sensation of "flutters" but no overt chest pain. The patient denies any nausea, vomiting, diarrhea. No shortness of breath, dizziness. No fevers, chills. The patient has been afebrile. Blood pressure is in a good range. The patient does not voice any other concerns at this time. OBJECTIVE: GENERAL: On examination, the patient is a well-developed reasonably-nourished 72-year-old male who is awake, alert and oriented to person, place, time, situation. He is verbal, conversational. VITAL SIGNS: Temperature is 97.6, pulse 61, respirations 16, blood pressure is 113/68. Oxygen saturation 95% on room air. SKIN: Warm and dry, no rash. Not diaphoretic. HEENT: Pupils equal, round, reactive to light and accommodation. Conjunctivae pink. No evidence of JVD. CARDIOVASCULAR: Heart is regular. There is no murmur or rub. CHEST: Clear, symmetrical, unlabored. ABDOMEN: Soft, nontender, nondistended. BACK: No CVA tenderness or sacral edema. EXTREMITIES: No clubbing, cyanosis, edema. PSYCHIATRIC: Appropriate affect, pleasant mood. DIAGNOSTIC LABORATORY VALUES: Hematology obtained on 12/07/2017: WBCs are 10.2, hemoglobin is 12.5, hematocrit is 36.6, platelet count is 116,000. Chemistry obtained on 12/07/2017: Magnesium 2.1, *------* 0.53, troponin is 0.012, BNP is 50. IMPRESSION AND PLAN: 1. Chest pain and known coronary artery disease. The patient has been seen and evaluated by Dr. Eisenberg, will undergo Cardiolite stress testing in the a.m. We will continue the patient's home medications, repeat lipid panel in they a.m. and follow. 2. Diabetes mellitus type 2. We will continue the patient's diabetic diet with sliding scale coverage. 3. Hypertension. Continue the patient's home medications. DISPOSITION: The patient is a FULL CODE. Pending the patient's symptomatology and diagnostic findings we will reevaluate in the a.m. for discharge. Time spent with followup including assessment, plan, physical examination, patient education, review of records is 15 minutes. DICTATING PHYSICIAN: SHILOH PETE NP [id number] PHY#: [id number] ID: [id number] JOB#: [id number] ACCT: [id number] cc:Sally ADAMES M. D. >
[2017-12-07] MEDS ORDERED: METOPROLOL SUCCINATE 50 MG TAB.SR.24H PO SCH (22:00)
[2017-12-07] MEDS ORDERED: TAMSULOSIN HCL 0.4 MG CAP.SR.24H PO SCH (22:00)
[2017-12-07] MEDS ORDERED: ATORVASTATIN CALCIUM 40 MG TABLET PO SCH (22:00)
[2017-12-07] MEDS ORDERED: (PENDING PHARMACY ID) (Metformin Hcl [Metformin Hcl Er] 500 MG) PO SCH (22:00)
[2017-12-08 06:31] LABS: CHOLESTEROL 92.93 mg/dL (0-200); CREATINE KINASE 45 U/L (55-170); TRIGLYCERIDES 54 mg/dL (<150)
[2017-12-08 06:42] LABS: DIRECT LDL 37 mg/dL (<100)
[2017-12-08] MEDS ORDERED: FINASTERIDE 5 MG TABLET PO SCH (10:00)
[2017-12-08] MEDS: METFORMIN HCL 500 MG TABLET PO SCH (10:03)
[2017-12-08] MEDS: LOSARTAN POTASSIUM 50 MG TABLET PO SCH (11:00)
[2017-12-08] MEDS: ASPIRIN 81 MG TABLET, CHEWABLE PO SCH (11:01)
[2017-12-08] MEDS: ATORVASTATIN CALCIUM 80 MG TABLET PO SCH (11:02)
[2017-12-08] MEDS: FUROSEMIDE 20 MG TABLET PO SCH (11:02)
[2017-12-08] MEDS: TICAGRELOR 90 MG TABLET PO SCH (11:02)
[2017-12-08] MEDS: MONTELUKAST SODIUM 10 MG TABLET PO SCH (11:03)
[2017-12-08] MEDS ORDERED: REGADENOSON INJ 0.4 MG/5 ML DISP.SYRIN IV ONE (12:03)
--- NOTE | 2017-12-08 14:03 | DRAGON STRESS TEST REPORT ---
Intravenous Lexiscan Cardiolite stress test using single photon emmision computerized tomography. Date of procedure: 12/08/2017. Ordering Provider: Dr. Almanzar. Patient's status: In Patient. Indication: Atypical chest pain, in a patient with history of non-ST elevation SC and history of proximal LAD drug-eluting stent in March 2017. Coronary risk factors: Age, diabetes, hypertension, and dyslipidemia. Resting EKG: Sinus Rhythm. Low voltage throughout. No acute ischemic changes Stress EKG: No changes of ischemia. Reason for termination: Protocol. Conclusions: Normal EKG and hemodynamic response to IV Lexiscan. Nuclear data: At rest the patient was given 14.53 millicuries of technetium 99m sestamibi injected intravenously. As per protocol rest non gated SPECT images were obtained. Subsequently the patient was given intravenous Lexiscan at a dose of 0.4 mg in 5 mL intravenously, followed by flush with normal saline. Subsequently the stress dose of 44.4 millicuries of technetium 99m sestamibi was injected intravenously. As per protocol stress gated images were obtained. Nuclear interpretation: Review of images showed that there was bowel contamination artifact of the inferior wall. But in spite of this all segments of the myocardium had normal perfusion at rest, and normal perfusion post stress with IV Lexiscan. All segments of the myocardium had normal motion, contraction, and thickening by gated study. T. I D. ratio was normal at 1.00. Computer read rest, and stress left ventricular ejection fraction were 70 %, and 65 %, respectively. Conclusion: 1. There is no scintigraphic evidence of Lexiscan induced myocardial ischemia. 2. There is no scintigraphic evidence of myocardial infarction/scar. Recommendations: 1. Aggressive treatment of coronary artery disease, including statins beta- blockers, sublingual nitrates as needed. The patient knows to continue aspirin 325 mg p.o. daily and Brilinta 90 mg p.o. twice daily. He needs to continue with his dual antiplatelet therapy for at least one year post stent placement. 2.Aggressive risk factor modification, and treating the underlying co- morbidities. Discussed with the patient, and the attending physician on the case. QIANA
--- NOTE | 2017-12-08 14:44 | PDOC DISCHARGE SUMMARY ---
General - Admit/Disc Date/PCP Admission Date/Primary Care Provider: 12/07/17 02:30 Discharge Date: 12/08/17 - Discharge Diagnosis (1) CAD (coronary artery disease) Is this a current diagnosis for this admission?: Yes Summary: on aspirin and statin, needs to continue follow-up with PCP and Cardiology (2) Chest pain, unspecified Is this a current diagnosis for this admission?: Yes Summary: on aspirin and statin, needs to continue follow-up with PCP and Cardiology. Nuclear stress test done during admission was negative per cardiology. Needs to remain on Brilinta and aspirin therapy for a minimum of a year following his stent placement (3) Diabetes Is this a current diagnosis for this admission?: Yes Summary: continue home medications. given information about diabetic diet. (4) Dyslipidemia Is this a current diagnosis for this admission?: Yes Summary: on aspirin and statin, needs to continue follow-up with PCP and Cardiology (5) Hypertension Is this a current diagnosis for this admission?: Yes Summary: currently controlled on medications. Needs to follow-with PCP and continue home monitoring of BP (6) Obesity Is this a current diagnosis for this admission?: Yes Summary: encouraged diet and exercise - Additional Information Resuscitation Status: Full Code Discharge Diet: Cardiac, Diabetic Discharge Activity: Activity As Tolerated Home Medications: Tamsulosin HCl [Flomax 0.4 mg Cap.sr] 0.4 mg PO QHS 06/07/14 Aspirin [Aspirin EC] 81 mg PO DAILY 12/07/17 Atorvastatin Calcium 80 mg PO DAILY 12/07/17 B,C/Folic/Zinc/Copper Ox/Vit E [Stress B-Complex Tablet] 2 each PO DAILY Calcium Carb/Magnesium Oxid/D3 [Calcium Magnesium + D Tablet] 2 tab PO DAILY Finasteride [Proscar 5 mg Tablet] 5 mg PO DAILY 12/07/17 Furosemide [Lasix 20 mg Tablet] 20 mg PO QAM 12/07/17 Glucosam/Chondr/Collagn/Hyalur [Glucosamine & Chondroitin Cap] 2 each PO DAILY 12/07/17 Losartan Potassium 100 mg PO DAILY 12/07/17 Magnesium Oxide [Mag-Ox 400 mg Tablet] 800 mg PO DAILY 12/07/17 Metformin HCl [Metformin HCl ER] 500 mg PO QHS 12/07/17 Metoprolol Succinate 50 mg PO QHS 12/07/17 Montelukast Sodium 10 mg PO QPMP PRN 12/07/17 [place]-3 Fatty Acids [[place]-3] 2,000 mg PO DAILY 12/07/17 Omeprazole 20 mg PO DAILY 12/07/17 Potassium Gluconate [Potassium] 99 mg PO DAILY 12/07/17 Ticagrelor [Brilinta 90 mg Tablet] 90 mg PO Q12 12/07/17 Ubidecarenone/Vit E Acet [Co Q-10 100 mg Softgel] 2 cap PO DAILY 12/07/17 History of Present Illness Patient complains of: chest pain. History of Present Illness: GIDEON FREDERICK is a 72 year old male admitted as a chest pain ruleout. He recently had a cardiac cath with stent placement. He started having chest pain last night. Has been chest pain free since admission. CE's negative X3. Nuclear stress test done during admission was negative. Hospital Course Hospital Course: During his admission he has been chest pain free. He has rested well. He underwent cardiology consult and nuclear stress test. CE's negative X3. Nuclear stress test negative for ischemia. His medications have been reconciled and he needs to remain on brilinta and aspirin for a minimum of 1 year. This has been explained to him and all of his questions and concerns have been answered prior to discharge. Physical Exam Vital Signs: Temp Pulse Resp BP Pulse Ox 97.6 F 58 L 16 111/64 100 12/08/17 07:36 12/08/17 07:36 12/08/17 07:36 12/08/17 07:36 12/08/17 09:07 Intake & Output 12/07/17 12/08/17 12/09/17 06:59 06:59 06:59 Intake Total 5 Output Total 675 Balance -670 General appearance: PRESENT: no acute distress, cooperative Head exam: PRESENT: normocephalic Mouth exam: PRESENT: moist, neck supple Neck exam: PRESENT: full ROM. ABSENT: carotid bruit, JVD, lymphadenopathy, tenderness, thyromegaly, tracheal deviation Respiratory exam: PRESENT: clear to auscultation mitzi. ABSENT: accessory muscle use Cardiovascular exam: PRESENT: RRR. ABSENT: gallop, rubs Pulses: PRESENT: normal carotid pulses GI/Abdominal exam: PRESENT: normal bowel sounds, soft. ABSENT: ascites, guarding, organolmegaly, tenderness Extremities exam: ABSENT: +1 edema Musculoskeletal exam: PRESENT: ambulatory Neurological exam: PRESENT: alert, oriented to person, oriented to place, oriented to time, oriented to situation Psychiatric exam: ABSENT: agitated, anxious Skin exam: PRESENT: normal color. ABSENT: rash Results Laboratory Results: 12/08/17 05:20 Triglycerides 54 Cholesterol 92.93 LDL Cholesterol Direct 37 VLDL Cholesterol 11.0 HDL Cholesterol 47 12/07/17 12/07/17 12/08/17 08:24 14:48 05:20 Creatine Kinase 45 L CK-MB (CK-2) 0.62 0.53 Troponin I < 0.012 < 0.012 Impressions: Chest X-Ray 12/07/17 01:21 IMPRESSION: 1. No acute pulmonary process identified. Plan Discharge Plan: discharge home, follow-up with PCP in next 2-3 days. Follow-up with cardiology in next 2-3 weeks, sooner if any issues or concerns Time Spent: Greater than 30 Minutes
--- NOTE | 2017-12-08 14:59 | PROGRESS NOTE E ---
Progress Note NAME: GIDEON FREDERICK : 1945 AGE: 72Y DATE: 12/08/2017 ROOM: 423 SUBJECTIVE: Note that the patient had no further chest pain or discomfort. There is no PND or orthopnea. He denies any palpitations. There is no shortness of breath. There are no anginal symptoms. The patient has no pedal edema. There are no TIA or CVA symptoms. There is no palpitations, syncope, or near syncope. There is no arrhythmias seen on the monitor. The patient's EKG shows low voltage throughout with sinus rhythm, but no ischemic changes. His cardiac enzymes have been negative times 3. The patient underwent an uneventful IV Lexiscan Cardiolite stress test today. See report below. OBJECTIVE: GENERAL: On examination, the patient is mildly obese in no acute distress. He is well groomed. VITAL SIGNS: He is afebrile with a temperature of 97.6 degrees Fahrenheit, pulse is 58 beats per minute, blood pressure 111/64, respirations are 16 per minute, 02 saturations are 100% on room air. HEENT: Head is atraumatic, normocephalic. Eyes: Pupils are equal, round, regular and reactive to light and accommodation. Extraocular movements are normal. There is no conjunctival pallor. There is no scleral icterus. Ears: Tympanic membranes are intact. External auditory canals are clear. Nose: There is no deviated nasal septum. There is inflammation of the nasal mucous membrane. Mouth: Mucous membranes of the mouth are moist. Tongue is moist. There are no ulcers. There is no bleeding from the gums. Throat: There is no redness of the oropharynx. There are no exudates. SKIN: There are no skin rashes. There is petechia or ecchymosis. There are no skin lesions. NECK: Supple. There is no JVD. Carotids are equal. There is no bruit. There is no lymphadenopathy. There is no goiter. Trachea is central. LUNGS: Clear to auscultation and percussion. There is no chest wall tenderness. HEART: S1 and S2 are heard. There is no S3 gallop. There is no S4 gallop. There is a systolic murmur in the left sternal border and apex. There is no rub. ABDOMEN: Soft, slightly obese, nontender. There is no hepatosplenomegaly. Bowel sounds are well heard. There are no tender areas or masses. EXTREMITIES: Femorals are slightly diminished. There are no femoral bruits. Leg pulses are slightly diminished. There is no DVT or cellulitis. There is no pedal edema. There is no cyanosis or clubbing. There is no calf tenderness. CENTRAL NERVOUS SYSTEM: The patient is conscious, awake and alert, oriented x3 with no focal deficits. DIAGNOSTICS: The patient's EKG shows sinus rhythm, first degree AV block, incomplete right bundle branch block pattern. The patient's triglycerides are 54. The patient's LDL cholesterol is good at 37. His HDL cholesterol is good at 47. His total cholesterol is 92.3. As mentioned earlier, his cardiac enzymes have been negative. Note that the patient had an IV Lexiscan Cardiolite stress test. This did not show any reversible ischemia and no evidence of IA or scar. IMPRESSION: 1. ATYPICAL CHEST PAIN RESOLVED. No evidence of IA or ischemia by IV Lexiscan Cardiolite stress test and also by biomarkers and the EKG. 2. HYPERTENSION WELL CONTROLLED. 3. HYPERLIPIDEMIA, GOOD LIPIDS LEVELS. 4. DIABETES MELLITUS TYPE 2, NON-INSULIN DEPENDENT. RECOMMENDATIONS: Note that the stress test was discussed with the patient and with the attending physician on the case. We will continue the patient's beta blockers, statins, aspirin, and Brilinta. The patient knows to take the Brilinta and aspirin for at least 1 year after the drug-eluting stent test and *------* in March of 2017. Hence, should continue that until March of 2018 and subsequently we will leave it to Dr. Donaldson who is an transformer tester to see if he wants to continue that. Continue aggressive risk factor modification. The sensitivity and specificity of the stress test was discussed with the patient in detail and he was advised to report any symptoms of chest pain or discomfort as soon as they appear and especially if they are not relieved with nitroglycerin. Note, 30 minutes spent on the patient with more than 50% of the time spent on direct patient care. In view of the *------* stress test and advising the patient of further treatment, medical decision making was of high complexity. His medications have been reviewed. Discussed with the attending physician on the case. Note more than 50% of the time was spent on direct patient care. The patient is a FULL CODE. His nephew is his surrogate healthcare decision maker. We will sign off the case. Thanking you. DICTATING PHYSICIAN: RABIA RUELAS M.D. [id number] PH#: [id number] ID: [id number] JOB#: [id number] ACCT: [id number] cc: >
[2017-12-08 15:13] VITALS: BP 112/45
--- NOTE | 2017-12-08 16:41 | EKG REPORT ---
SEVERITY:- ABNORMAL ECG - SINUS RHYTHM FIRST DEGREE AV BLOCK INCOMPLETE RIGHT BUNDLE BRANCH BLOCK : Confirmed by: Donita Eisenberg 08-Dec-2017 16:41:02
== END 2017-12-08 15:35 | disposition home or self-care (01) ==
LOC: ER 00:40 → EH 02:30 → 4W 21:18
PROVIDERS: ADMIT Family Medicine; ATTEND Family Medicine
DX: I25.10 Atherosclerotic heart disease of native coronary artery without angina pectoris (principal); R07.2 Precordial pain; E11.8 Type 2 diabetes mellitus with unspecified complications; E78.5 Hyperlipidemia, unspecified; I10 Essential (primary) hypertension; E66.09 Other obesity due to excess calories; G47.00 Insomnia, unspecified; R60.0 Localized edema; R00.2 Palpitations; R53.83 Other fatigue; R09.81 Nasal congestion; I45.10 Unspecified right bundle-branch block; I44.0 Atrioventricular block, first degree; I25.2 Old myocardial infarction; Z68.34 Body mass index [BMI] 34.0-34.9, adult; Z79.899 Other long term (current) drug therapy; Z79.82 Long term (current) use of aspirin; Z79.84 Long term (current) use of oral hypoglycemic drugs; Z79.02 Long term (current) use of antithrombotics/antiplatelets; Z95.5 Presence of coronary angioplasty implant and graft; Z82.49 Family history of ischemic heart disease and other diseases of the circulatory system
CPT/HCPCS: 93005 ×2; 96376; 99285; 96374; 36415 ×2; 82553; 82550; 83735; 85025; 80048; 84484; 80061; 83880; 93017; 71045; 78452; 94799; 93010 ×2; A9500; A9270 ×19; J2785; J1940; J3490 ×2; Q9969; G0378